=== PATIENT | male | born 1965 | race American Indian/Alaskan Native ===

== ENCOUNTER 2020-06-29 12:28 | Emergency (ER) | payer SELFPAY ==
[2020-06-29] MEDS ORDERED: hydrALAZINE 20 MG/1 ML INJ IV ONE (14:01)
--- NOTE | 2020-06-29 14:10 | Emergency Department Report ---
ED General Adult HPI - General Chief complaint: High BP Stated complaint: HIGH BLOOD PRESSURE Time Seen by Provider: 06/29/20 13:35 Source: patient Mode of arrival: Ambulatory Limitations: No Limitations - History of Present Illness Initial comments: Patient is a 54-year-old male presents emergency room complaints of hypertension. He states that today he went for a physical for work and was advised that he needed to be evaluated in the emergency department due to significantly elevated blood pressure. He denies any symptoms at all, he is currently asymptomatic. He denies any chest pain, shortness of breath, vision changes, numbness, weakness, gait disturbance, speech disturbance. He has a past medical history of hypertension and states that he used to take 2 medications but does not know what they are. He states it has been 2 years since he has taken the medications. He denies any medication allergies. - Related Data Previous Rx's Medication Instructions Recorded Last Taken Type amLODIPine 10 mg PO DAILY #30 tab 06/29/20 Unknown Rx hydroCHLOROthiazide [HCTZ] 25 mg PO QDAY #30 tablet 06/29/20 Unknown Rx Allergies Allergy/AdvReac Type Severity Reaction Status Date / Time No Known Allergies Allergy Unverified 06/29/20 13:03 ED Review of Systems ROS: Stated complaint: HIGH BLOOD PRESSURE Other details as noted in HPI Comment: All other systems reviewed and negative ED Past Medical Hx - Past Medical History Previous Medical History?: Yes Hx Hypertension: Yes - Medications Home Medications: Home Medications Medication Instructions Recorded Confirmed Last Taken Type amLODIPine 10 mg PO DAILY #30 tab 06/29/20 Unknown Rx hydroCHLOROthiazide [HCTZ] 25 mg PO QDAY #30 tablet 06/29/20 Unknown Rx ED Physical Exam - General Limitations: No Limitations General appearance: alert, in no apparent distress - Head Head exam: Present: atraumatic, normocephalic - Eye Eye exam: Present: normal appearance - ENT ENT exam: Present: mucous membranes moist - Respiratory Respiratory exam: Present: normal lung sounds bilaterally. Absent: respiratory distress, wheezes, rales, rhonchi, stridor, chest wall tenderness, accessory muscle use, decreased breath sounds, prolonged expiratory - Cardiovascular Cardiovascular Exam: Present: regular rate, normal rhythm, normal heart sounds. Absent: systolic murmur, diastolic murmur, rubs, gallop - Neurological Exam Neurological exam: Present: alert, oriented X3, CN II-XII intact, normal gait. Absent: motor sensory deficit - Psychiatric Psychiatric exam: Present: normal affect, normal mood - Skin Skin exam: Present: warm, dry, intact ED Course Vital Signs 06/29/20 06/29/20 06/29/20 13:03 14:52 14:54 Temperature 98.0 F Pulse Rate 76 Respiratory 16 Rate Blood Pressure 204/130 204/130 Blood Pressure 203/113 [Right] O2 Sat by Pulse 98 Oximetry 06/29/20 06/29/20 16:06 16:40 Temperature Pulse Rate 76 72 Respiratory Rate Blood Pressure 204/130 Blood Pressure 177/110 [Right] O2 Sat by Pulse Oximetry ED Medical Decision Making - Lab Data Result diagrams: 06/29/20 14:09 06/29/20 14:09 Lab Results 06/29/20 06/29/20 06/29/20 Range/Units 14:09 14:09 15:04 WBC 9.9 (4.5-11.0) K/mm3 RBC 6.11 H (3.65-5.03) M/mm3 Hgb 14.9 (11.8-15.2) gm/dl Hct 48.0 H (35.5-45.6) % MCV 79 L (84-94) fl MCH 24 L (28-32) pg MCHC 31 L (32-34) % RDW 15.4 H (13.2-15.2) % Plt Count 153 (140-440) K/mm3 Lymph % (Auto) 18.4 (13.4-35.0) % [place] % (Auto) 6.1 (0.0-7.3) % Eos % (Auto) 2.0 (0.0-4.3) % Baso % (Auto) 0.4 (0.0-1.8) % Lymph # (Auto) 1.8 (1.2-5.4) K/mm3 [place] # (Auto) 0.6 (0.0-0.8) K/mm3 Eos # (Auto) 0.2 (0.0-0.4) K/mm3 Baso # (Auto) 0.0 (0.0-0.1) K/mm3 Seg Neutrophils % 73.1 H (40.0-70.0) % Seg Neutrophils # 7.2 (1.8-7.7) K/mm3 Sodium 139 (137-145) mmol/L Potassium 4.0 (3.6-5.0) mmol/L Chloride 100.2 (98-107) mmol/L Carbon Dioxide 33 H (22-30) mmol/L Anion Gap 10 mmol/L BUN 20 (9-20) mg/dL Creatinine 1.2 (0.8-1.3) mg/dL Estimated GFR > 60 ml/min BUN/Creatinine Ratio 17 % Glucose 97 (75-100) mg/dL Calcium 8.9 (8.4-10.2) mg/dL Urine Color Yellow (Yellow) Urine Turbidity Clear (Clear) Urine pH 5.0 (5.0-7.0) Ur Specific [place] 1.015 (1.003-1.030) Urine Protein <15 mg/dl (Negative) mg/dL Urine Glucose (UA) Neg (Negative) mg/dL Urine Ketones Neg (Negative) mg/dL Urine Blood Neg (Negative) Urine Nitrite Neg (Negative) Urine Bilirubin Neg (Negative) Urine Urobilinogen < 2.0 (<2.0) mg/dL Ur Leukocyte Esterase Neg (Negative) Urine WBC (Auto) < 1.0 (0.0-6.0) /HPF Urine RBC (Auto) < 1.0 (0.0-6.0) /HPF U Epithel Cells (Auto) < 1.0 (0-13.0) /HPF Urine Mucus Few /HPF Vital Signs 06/29/20 06/29/20 06/29/20 13:03 14:52 14:54 Temperature 98.0 F Pulse Rate 76 Respiratory 16 Rate Blood Pressure 204/130 204/130 Blood Pressure 203/113 [Right] O2 Sat by Pulse 98 Oximetry 06/29/20 06/29/20 16:06 16:40 Temperature Pulse Rate 76 72 Respiratory Rate Blood Pressure 204/130 Blood Pressure 177/110 [Right] O2 Sat by Pulse Oximetry - Medical Decision Making Patient is a 54-year-old male presents emergency room complaints of hypertension. He states that today he went for a physical for work and was advised that he needed to be evaluated in the emergency department due to significantly elevated blood pressure. He denies any symptoms at all, he is currently asymptomatic. He denies any chest pain, shortness of breath, vision changes, numbness, weakness, gait disturbance, speech disturbance. He has a past medical history of hypertension and states that he used to take 2 medications but does not know what they are. He states it has been 2 years since he has taken the medications. He denies any medication allergies. initial vitals with significantly elevated BP. pt give IV hydralazine and clonidine and blood pressure improved and pt remained asymptomatic. pt given prescription for amlodipine and hydralazine. advised pt Please take medication as prescribed. Please take keep a blood pressure log and take this to the primary care doctor. It is very importantly follow-up with a primary care doctor. Eat a low-sodium diet. Increase your water intake. Incorporate 30 to 60 minutes of daily exer cise. Return to emergency room for any new or worsening symptoms. Critical care attestation.: If time is entered above; I have spent that time in minutes in the direct care of this critically ill patient, excluding procedure time. ED Disposition Clinical Impression: Hypertensive urgency, Non compliance w medication regimen Disposition: - TO HOME OR SELFCARE Is pt being admited?: No Does the pt Need Aspirin: No Condition: Stable Instructions: Hypertension, Adult, Grhm-oh-Rpyj, Low-Sodium Eating Plan, Managing Your Hypertension Additional Instructions: Please take medication as prescribed. Please take keep a blood pressure log and take this to the primary care doctor. It is very importantly follow-up with a primary care doctor. Eat a low-sodium diet. Increase your water intake. Incorporate 30 to 60 minutes of daily exercise. Return to emergency room for any new or worsening symptoms. Prescriptions: amLODIPine 10 mg PO DAILY #30 tab hydroCHLOROthiazide [HCTZ] 25 mg PO QDAY #30 tablet Referrals: RUTHY CAVAZOS MD [Staff Physician] - 3-5 Days [facility] [Provider Group] - 3-5 Days [facility], [LAB/CONTRACT] - 3-5 Days [facility] [Outside] - 3-5 Days PRIMARY MD DERRICK [Primary Care Provider] - 3-5 Days Forms: Work/School Release Form(ED) Time of Disposition: 17:04 Print Language: GREENLANDIC
[2020-06-29 14:32] LABS: Basophils % (Auto) 0.4 % (0.0-1.8); Eosinophils # (Auto) 0.2 K/mm3 (0.0-0.4); Lymphocytes # (Auto) 1.8 K/mm3 (1.2-5.4); Lymphocytes % (Auto) 18.4 % (13.4-35.0); Mean Corpuscular HGB Conc 31 % (32-34); Mean Corpuscular Volume 79 fl (84-94); Monocytes # (Auto) 0.6 K/mm3 (0.0-0.8); Monocytes % (Auto) 6.1 % (0.0-7.3); Platelet Count 153 K/mm3 (140-440); Red Blood Count 6.11 M/mm3 (3.65-5.03); Red Cell Distribution Width 15.4 % (13.2-15.2)
[2020-06-29 14:40] LABS: Hemoglobin 14.9 gm/dl (11.8-15.2)
[2020-06-29 14:50] LABS: BUN/Creatinine Ratio 17; Blood Urea Nitrogen 20 mg/dL (9-20); Calcium 8.9 mg/dL (8.4-10.2); Hemolysis Index 3
[2020-06-29 15:35] LABS: Bilirubin,Urine NEG (Negative); Blood,Urine NEG (Negative); Color,Urine Yellow (Yellow); Mucus,Urine FEW /HPF; Protein,Urine <15 mg/dL mg/dL (Negative); Urobilinogen,Urine < 2.0 mg/dL (<2.0); WBC,Urine < 1.0 /HPF (0.0-6.0)
[2020-06-29] MEDS ORDERED: cloNIDine 0.2 MG TAB PO ONE (15:45)
[2020-06-29 15:49] LABS: RBC,Urine < 1.0 /HPF (0.0-6.0)
[2020-06-29 16:41] VITALS: BP 177/110
== END 2020-06-29 17:25 | disposition home or self-care (01) ==
LOC: ED 12:28
DX: I16.0 Hypertensive urgency (principal); Z91.14 Patient's other noncompliance with medication regimen; Z79.899 Other long term (current) drug therapy
CPT/HCPCS: 36415; 80048; 81001; 85025; 96374; 99283; J0360